=== PATIENT | female | born 1955 | race Caucasian/White ===

== ENCOUNTER 2019-10-21 09:14 | Outpatient (CLI) | payer MEDICARE, OTHER, SELFPAY ==
--- NOTE | 2019-10-21 10:00 | MM_ITS ---
WS: [id number] BILATERAL DIGITAL DIAGNOSTIC MAMMOGRAM MAMMOGRAPHY WITH CAD CLINICAL INFORMATION: breast nodules COMPARISON: 05/11/2018 and 04/19/2018 TECHNIQUE: Bilateral CC, MLO, and ML views. FINDINGS: Scattered fibroglandular densities bilaterally. Palpable marker upper inner right breast. Partially v isualized asymmetric density adjacent to the chest wall at the level of the palpable marker. Ultrasou nd is pending. Evidence of prior surgical lumpectomy with parenchymal fibrosis in the inner right breast. Lucent centered calcifications. Incidental intramammary lymph nodes. Left breast is unremarkable. ULTRASOUND BREAST RIGHT TECHNIQUE: Ultrasound right breast focused area of concern. CLINICAL INFORMATION: breast nodules COMPARISON: None. FINDINGS: Ultrasound right breast 11:00 position. 4 cm from the nipple is a complex lesion with internal echoge nicity measuring 1.1 x 1.8 x 0.7 CM. Additional similar-appearing hypoechoic lesion at the 1:00 posit ion 3 cm from the nipple measuring 2.1 x 3.6 x 1.0 cm. This lesion is wider than tall with internal e chogenicity. These lesions are indeterminate and suspicious. Recommend further evaluation with ultras ound-guided biopsy. MM/[place] [id number] IMPRESSION: BI-RADS: 4C-Suspicious: Moderate FOLLOW UP: US Guided Biopsy Recommended
--- NOTE | 2019-10-21 11:00 | US_ITS ---
WS: [id number] BILATERAL DIGITAL DIAGNOSTIC MAMMOGRAM MAMMOGRAPHY WITH CAD CLINICAL INFORMATION: breast nodules COMPARISON: 05/11/2018 and 04/19/2018 TECHNIQUE: Bilateral CC, MLO, and ML views. FINDINGS: Scattered fibroglandular densities bilaterally. Palpable marker upper inner right breast. Partially v isualized asymmetric density adjacent to the chest wall at the level of the palpable marker. Ultrasou nd is pending. Evidence of prior surgical lumpectomy with parenchymal fibrosis in the inner right breast. Lucent centered calcifications. Incidental intramammary lymph nodes. Left breast is unremarkable. ULTRASOUND BREAST RIGHT TECHNIQUE: Ultrasound right breast focused area of concern. CLINICAL INFORMATION: breast nodules COMPARISON: None. FINDINGS: Ultrasound right breast 11:00 position. 4 cm from the nipple is a complex lesion with internal echoge nicity measuring 1.1 x 1.8 x 0.7 CM. Additional similar-appearing hypoechoic lesion at the 1:00 posit ion 3 cm from the nipple measuring 2.1 x 3.6 x 1.0 cm. This lesion is wider than tall with internal e chogenicity. These lesions are indeterminate and suspicious. Recommend further evaluation with ultras ound-guided biopsy. US/US breast RT limited* [id number] IMPRESSION: BI-RADS: 4C-Suspicious: Moderate FOLLOW UP: US Guided Biopsy Recommended
== END 2019-10-21 09:15 | disposition home or self-care (01) ==
LOC: RADSHAW 09:16
PROVIDERS: Family Provider Nurse Practitioner; PCP Family Medicine; Visit Provider Nurse Practitioner Family
DX: N63.12 Unspecified lump in the right breast, upper inner quadrant (principal)
CPT/HCPCS: 76642; 77066

== ENCOUNTER 2019-11-12 11:35 | Outpatient (CLI) | payer MEDICARE, OTHER, SELFPAY ==
--- NOTE | 2019-11-12 13:00 | US_ITS ---
WS: [id number] ULTRASOUND-GUIDED RIGHT BREAST BIOPSY CLINICAL INFORMATION: breast nodule COMPARISON: None. FINDINGS: The procedure including risks, benefits, and complications were discussed with the patient who agreed to proceed. Using sterile technique patient was prepped and draped in the usual sterile fashion. Aft er 1% lidocaine utilizing real-time ultrasound guidance 5 14-gauge cores were obtained of the right b reast lesion at the 1 o'clock position 4 cm from the nipple. Subsequently a titanium clip was placed in the biopsy cavity Next, the 1:00 lesion 3 cm from the nipple was localized. After 1% lidocaine using real-time ultrasou nd guidance 5 14-gauge cores were obtained. Titanium clip was placed in the biopsy cavity. No immedia te complications. Pathology demonstrates Specimen A, right breast 1:00, 4 cm from nipple, needle core biopsies: Chronic mastitis No malignancy identified Specimen B, right breast, 1:00, 3 cm from nipple: Chronic mastitis No malignancy identified US/[place] [id number] IMPRESSION: 1. Uncomplicated ultrasound-guided right breast biopsy with biopsy of 2 lesion s. 2. The pathology demonstrates chronic mastitis in both lesions with no maligna ncy identified. 3. Recommend 6 month follow-up ultrasound and diagnostic mammography right mikayla ast. BI-RADS: 3-Probably Benign FOLLOW UP: 6 Month Follow-up
== END 2019-11-12 11:36 | disposition home or self-care (01) ==
LOC: RAD 11:39
PROVIDERS: Family Provider Nurse Practitioner; PCP Family Medicine; Visit Provider Nurse Practitioner Family
DX: N63.10 Unspecified lump in the right breast, unspecified quadrant (principal); N60.11 Diffuse cystic mastopathy of right breast; N64.1 Fat necrosis of breast
CPT/HCPCS: 19083; 19084; 88305; J2001

== ENCOUNTER 2020-03-23 06:05 | Day surgery (SDC) | payer MEDICARE, OTHER, SELFPAY ==
[2020-03-20 15:26] VITALS: BMI 41.7
[2020-03-23 06:23] VITALS: BP 130/71; PULSE 63; RESP 18; TEMP 35.8; O2SAT 96
[2020-03-23 06:35] LABS: Glucose Point of Care 116 mg/dL (70-110)
--- NOTE | 2020-03-23 06:40 | ANES.PREANE2 ---
Pre-Anesthetic Assessment Pre-Anesthetic Assessment: Height/Weight: Height 1.57 m Weight 103.419 kg Temp Pulse Resp BP Pulse Ox 96.5 F L 63 18 130/71 96 03/23/20 06:23 03/23/20 06:23 03/23/20 06:23 03/23/20 06:23 03/23/20 06:23 Preop Diagnosis: Chronic mastitis Proposed Procedure: Operation Date: 03/23/20 07:30 Proposed Procedures p Excision right breast lump(Right) - Teddy Herman MD Familial anesthetic complications: None Was Beta Maura taken within 24 hours: N/A Last intake: Intake Last Liquid Date 03/22/20 Last Liquid Time 21:00 Last Solid Date 03/22/20 Last Solid Time 18:30 Social: Social History: No alcohol and No tobacco Exam: Pre-Anes Outpt Exam: alert, oriented x 3, clear to auscultation bilaterally and regular rate & rhythm Airway: Cervical ROM: WNL MP: 4 Dentition: Full Pulmonary: Pulmonary: Asthma (singulair and symbicort daily) CV/HEM: CV/HEM: HTN Metabolic: Metabolic: DM and Morbid obesity Anesthetic Plan: ASA status: 2 Anesthesia: MAC Risk of > 500 ml blood loss (7ml/kg in children): No PFSH Anesthesia PFSH: Medical History Chronic mastitis of right breast Diabetes mellitus Essential hypertension Surgical History History of colonoscopy with polypectomy (~2014) History of partial hysterectomy History of tonsillectomy and adenoidectomy Status post appendectomy Status post right breast lumpectomy Family History Other COPD (chronic obstructive pulmonary disease) Cancer Diabetes Social History Smoking and tobacco status: never smoked Alcohol intake: never Data Anesthesia Other Labs: Laboratory Results - last 48 hr 03/23/20 06:33 POC Glucose 116 Cardiac Studies: No Data to Display
[2020-03-23] MEDS: sodium chloride 0.9% 1,000 ML 30 ML IV (06:42)
--- NOTE | 2020-03-23 06:59 | W.PM.OPSUD ---
Surgery/Procedure H&P Update DATE OF PROCEDURE: March 23, 2020 DATE H&P PERFORMED: 03/16/20 H&P UPDATE INFORMATION: I have reviewed H&P completed within last 30 days, I have examined patient prior to procedure and No changes to prior documentation PREOP DIAGNOSIS: Chronic mastitis PLANNED PROCEDURE: Operation Date: 03/23/20 07:30 Proposed Procedures p Excision right breast lump(Right) - Teddy Herman MD
[2020-03-23] MEDS: clindamycin 600 MG/50 ML PREMIX 100 MG IV (07:49)
[2020-03-23] MEDS: lidocaine 1% INJ 20 mL SUBCUT (08:07)
[2020-03-23 08:53] VITALS: BP 93/60; PULSE 61; RESP 16; TEMP 36.5; O2SAT 97
--- NOTE | 2020-03-23 08:56 | PM.OP ---
Operative Report Date of procedure: March 23, 2020 Pre-op Diagnosis: Status post lumpectomy right breast 2018, chronic mastitis Post-op Diagnosis: Status post right breast lumpectomy 10 o'clock position 2018 Chronic mastitis Cicatrized cavity at the lumpectomy site containing purulent fluid Procedure Done: Right breast lumpectomy 10 o'clock position Specimens removed/disposition: Wound cultures, aerobic and anaerobic Pathology Surgeon: Teddy Herman Anesthesia: MAC Condition: stable Disposition: PACU Procedure: The patient was taken to the operating room and placed under MAC after IV antibiotic had been administered. The surgical site was infiltrated with 1% lidocaine mixed with 0.5% Marcaine. Using a 15 blade an elliptical incision was made around the existing scar at 10 o'clock position on the right breast. A lacrimal probe was introduced through the draining punctum on the incision. Using electrocautery the subcutaneous tissue was divided and the dissection was carried towards the chest wall medially around the cicatrized tunnel. At one point there was drainage of purulent fluid, aerobic and anaerobic cultures were obtained. The dissection around the cicatrized tunnel containing the lacrimal probe extended to the original lumpectomy cavity site. The cicatrized lumpectomy cavity was excised until there was no scar tissue noted within the lumpectomy cavity. Wound was irrigated copiously with saline and packed with quarter inch ribbon gauze and covered with sterile dressings. The patient was extubated and transferred to recovery room in stable condition.
[2020-03-23 09:14] VITALS: BP 113/74; PULSE 60; RESP 18; O2SAT 99
--- NOTE | 2020-03-23 09:14 | SUR.PHASEII ---
pain Pt stating 5/10 on pain scale but is refusing medication at this time stating she wouldnt be able to wake up enough to get dressed to go home.
--- NOTE | 2020-03-23 09:24 | ANE.PACU2 ---
Inpatient post-anesthesia follow up: Airway intact: Yes Vital signs: Temperature 97.7 F Pulse Rate 60 Respiratory Rate 18 Blood Pressure 113/74 Pulse Oximetry 99 Oxygen Delivery Me thod Room Air Oxygen Flow Rate Fraction of Inspir ed Oxygen Hydration adequate: Yes Nausea and vomiting: No Pain level: 5 Mental status: Baseline
== END 2020-03-23 09:28 | disposition home or self-care (01) ==
PROVIDERS: PCP Family Medicine; Visit Provider Surgery
PROC: (CPT 19301; principal; 2020-03-23 07:30)
DX: N61.0 Mastitis without abscess (principal); N60.11 Diffuse cystic mastopathy of right breast; J45.909 Unspecified asthma, uncomplicated; I10 Essential (primary) hypertension; E11.9 Type 2 diabetes mellitus without complications; E66.01 Morbid (severe) obesity due to excess calories
CPT/HCPCS: 19301; 12345; 36416; 82962; 87070; 87075; 88305; J2250; J2405; J2704; J2765; J3010; J3490; J7030

== ENCOUNTER 2020-04-01 09:15 | Outpatient (CLI) | payer MEDICARE, OTHER, SELFPAY ==
[2020-04-01 12:05] LABS: Alanine Aminotransferase 24 U/L (0-33); Alkaline Phosphatase 87 IU/L (35-105); Aspartate Amino Transferase 21 U/L (0-32); Blood Urea Nitrogen 19 mg/dL (8-23); Calcium 9.7 mg/dL (8.5-10.5); Carbon Dioxide 28 mmol/L (22-29); Chloride 103 mmol/L (98-107); Globulin 3.3 g/dL (1.3-4.6); Glomerular Filtration Rate 83.7 mL/min (90-130); Glucose 115 mg/dL (65-115); Osmolality Calculated 287 mOsm/kg (285-295); Sodium 140 mmol/L (136-145); Total Bilirubin 0.3 mg/dL (0.15-1.2); Total Protein 7.3 g/dL (6.6-8.7)
[2020-04-01 12:06] LABS: Anion Gap 13.5 (5-19); Potassium 4.5 mmol/L (3.5-5.1)
[2020-04-01 12:12] LABS: Prealbumin 19.9 mg/dL (20-40)
== END 2020-04-01 09:16 | disposition home or self-care (01) ==
LOC: WOUND 09:16
PROVIDERS: PCP Family Medicine; Visit Provider Emergency Medicine
DX: T81.89XA Other complications of procedures, not elsewhere classified, initial encounter (principal)
CPT/HCPCS: 11042; 36415; 80053; 84134; 87070; 87077; 87176; 87205; G0463

== ENCOUNTER 2020-04-08 10:08 | Outpatient (CLI) | payer MEDICARE, OTHER, SELFPAY | END 2020-04-08 10:09 | disposition home or self-care (01) | LOC: WOUND 10:09 | PROVIDERS: PCP Family Medicine; Visit Provider Emergency Medicine | DX: T81.89XA Other complications of procedures, not elsewhere classified, initial encounter (principal) | CPT/HCPCS: 11042 ==

== ENCOUNTER 2020-04-13 13:21 | Outpatient (CLI) | payer MEDICARE, OTHER, SELFPAY | END 2020-04-13 13:22 | disposition home or self-care (01) | LOC: WOUND 13:23 | PROVIDERS: PCP Family Medicine; Visit Provider Nurse Practitioner Family | DX: E11.622 Type 2 diabetes mellitus with other skin ulcer (principal); L98.492 Non-pressure chronic ulcer of skin of other sites with fat layer exposed | CPT/HCPCS: 11042; 97605 ==

== ENCOUNTER 2020-04-17 14:50 | Outpatient (CLI) | payer MEDICARE, OTHER, SELFPAY | END 2020-04-17 14:51 | disposition home or self-care (01) | LOC: WOUND 14:51 | PROVIDERS: PCP Family Medicine; Visit Provider Surgery | DX: T81.89XA Other complications of procedures, not elsewhere classified, initial encounter (principal) | CPT/HCPCS: 11042 ==

== ENCOUNTER 2020-04-20 08:20 | Outpatient (CLI) | payer MEDICARE, OTHER, SELFPAY ==
--- NOTE | 2020-04-20 08:32 | US_ITS ---
WS: [id number] ULTRASOUND RIGHT BREAST HISTORY: PAIN, REDNESS, NONHEALING ULCER COMPARISON: 11/12/2019 TECHNIQUE: 2-D and Doppler. Superficial soft tissue ulceration at 1:00 RIGHT breast 5 cm from the nipple. Soft tissue ulceration measures 1.1 x 1.3 x 1.4 cm. Very little increased vascularity. US/US breast RT limited* [id number] IMPRESSION: BI-RADS: 3-Probably Benign FOLLOW-UP: See Report Soft tissue ulceration RIGHT breast at 1:00 at the surgical site. Nonhealing po stoperative ulcer suspected. Less likely abscess.
== END 2020-04-20 08:21 | disposition home or self-care (01) ==
LOC: RAD 08:26
PROVIDERS: PCP Family Medicine; Visit Provider Surgery
DX: L53.9 Erythematous condition, unspecified (principal); N64.4 Mastodynia; L98.499 Non-pressure chronic ulcer of skin of other sites with unspecified severity; T81.89XA Other complications of procedures, not elsewhere classified, initial encounter; X58.XXXA Exposure to other specified factors, initial encounter
CPT/HCPCS: 76642

== ENCOUNTER 2020-04-24 14:54 | Outpatient (CLI) | payer MEDICARE, OTHER, SELFPAY | END 2020-04-24 14:55 | disposition home or self-care (01) | LOC: WOUND 14:55 | PROVIDERS: PCP Family Medicine; Visit Provider Surgery | DX: T81.89XA Other complications of procedures, not elsewhere classified, initial encounter (principal) | CPT/HCPCS: 11042 ==

== ENCOUNTER 2020-05-01 14:59 | Outpatient (CLI) | payer MEDICARE, OTHER, SELFPAY | END 2020-05-01 15:00 | disposition home or self-care (01) | LOC: WOUND 14:59 | PROVIDERS: PCP Family Medicine; Visit Provider Surgery | DX: E11.622 Type 2 diabetes mellitus with other skin ulcer (principal); L98.492 Non-pressure chronic ulcer of skin of other sites with fat layer exposed | CPT/HCPCS: 11042; A6446 ==

== ENCOUNTER 2020-05-29 14:46 | Outpatient (CLI) | payer MEDICARE, OTHER, SELFPAY | END 2020-05-29 14:47 | disposition home or self-care (01) | LOC: WOUND 14:46 | PROVIDERS: PCP Family Medicine; Visit Provider Nurse Practitioner Family | DX: E11.622 Type 2 diabetes mellitus with other skin ulcer (principal); L98.492 Non-pressure chronic ulcer of skin of other sites with fat layer exposed | CPT/HCPCS: 11042; 87070; 87077; 87186 ==

== ENCOUNTER 2020-06-12 14:16 | Outpatient (CLI) | payer MEDICARE, OTHER, SELFPAY | END 2020-06-12 14:17 | disposition home or self-care (01) | LOC: WOUND 14:17 | PROVIDERS: PCP Family Medicine; Visit Provider Surgery | DX: E11.622 Type 2 diabetes mellitus with other skin ulcer (principal); L98.492 Non-pressure chronic ulcer of skin of other sites with fat layer exposed; I96 Gangrene, not elsewhere classified | CPT/HCPCS: 11042 ==

== ENCOUNTER 2020-06-26 14:08 | Outpatient (CLI) | payer MEDICARE, OTHER, SELFPAY | END 2020-06-26 14:09 | disposition home or self-care (01) | LOC: WOUND 14:09 | PROVIDERS: PCP Family Medicine; Visit Provider Surgery | DX: E11.622 Type 2 diabetes mellitus with other skin ulcer (principal); L98.492 Non-pressure chronic ulcer of skin of other sites with fat layer exposed | CPT/HCPCS: 11042 ==

== ENCOUNTER 2020-07-03 14:02 | Outpatient (CLI) | payer MEDICARE, OTHER, SELFPAY | END 2020-07-03 14:03 | disposition home or self-care (01) | LOC: WOUND 14:02 | PROVIDERS: PCP Family Medicine; Visit Provider Surgery | DX: E11.622 Type 2 diabetes mellitus with other skin ulcer (principal); L98.492 Non-pressure chronic ulcer of skin of other sites with fat layer exposed | CPT/HCPCS: 11042 ==

== ENCOUNTER 2020-07-10 13:55 | Outpatient (CLI) | payer MEDICARE, OTHER, SELFPAY | END 2020-07-10 13:56 | disposition home or self-care (01) | LOC: WOUND 13:56 | PROVIDERS: PCP Family Medicine; Visit Provider Surgery | DX: E11.622 Type 2 diabetes mellitus with other skin ulcer (principal); L98.492 Non-pressure chronic ulcer of skin of other sites with fat layer exposed | CPT/HCPCS: 11042 ==

== ENCOUNTER 2020-07-23 14:15 | Outpatient (CLI) | payer MEDICARE, OTHER, SELFPAY | END 2020-07-23 14:16 | disposition home or self-care (01) | LOC: WOUND 14:17 | PROVIDERS: PCP Family Medicine; Visit Provider Nurse Practitioner Family | DX: E11.622 Type 2 diabetes mellitus with other skin ulcer (principal); L98.492 Non-pressure chronic ulcer of skin of other sites with fat layer exposed | CPT/HCPCS: 11042 ==

== ENCOUNTER 2020-07-31 14:44 | Outpatient (CLI) | payer MEDICARE, OTHER, SELFPAY | END 2020-07-31 14:45 | disposition home or self-care (01) | LOC: WOUND 14:46 | PROVIDERS: PCP Family Medicine; Visit Provider Surgery | DX: E11.622 Type 2 diabetes mellitus with other skin ulcer (principal); T81.31XS Disruption of external operation (surgical) wound, not elsewhere classified, sequela; Y83.8 Other surgical procedures as the cause of abnormal reaction of the patient, or of later complication, without mention of misadventure at the time of the procedure; L98.492 Non-pressure chronic ulcer of skin of other sites with fat layer exposed | CPT/HCPCS: 11042 ==

== ENCOUNTER 2020-08-07 14:20 | Outpatient (CLI) | payer MEDICARE, OTHER, SELFPAY | END 2020-08-07 14:21 | disposition home or self-care (01) | LOC: WOUND 14:24 | PROVIDERS: PCP Family Medicine; Visit Provider Surgery | DX: E11.622 Type 2 diabetes mellitus with other skin ulcer (principal); L98.492 Non-pressure chronic ulcer of skin of other sites with fat layer exposed; T81.31XS Disruption of external operation (surgical) wound, not elsewhere classified, sequela; Y83.8 Other surgical procedures as the cause of abnormal reaction of the patient, or of later complication, without mention of misadventure at the time of the procedure | CPT/HCPCS: 11042 ==

== ENCOUNTER 2020-08-14 10:24 | Outpatient (CLI) | payer MEDICARE, OTHER, SELFPAY | END 2020-08-14 10:25 | disposition home or self-care (01) | LOC: WOUND 10:25 | PROVIDERS: PCP Family Medicine; Visit Provider Surgery | DX: E11.622 Type 2 diabetes mellitus with other skin ulcer (principal); L98.492 Non-pressure chronic ulcer of skin of other sites with fat layer exposed; T81.31XS Disruption of external operation (surgical) wound, not elsewhere classified, sequela; Y83.8 Other surgical procedures as the cause of abnormal reaction of the patient, or of later complication, without mention of misadventure at the time of the procedure | CPT/HCPCS: 11042 ==

== ENCOUNTER 2020-08-21 10:28 | Outpatient (CLI) | payer MEDICARE, OTHER, SELFPAY | END 2020-08-21 10:29 | disposition home or self-care (01) | LOC: WOUND 10:31 | PROVIDERS: PCP Family Medicine; Visit Provider Surgery | DX: T81.89XA Other complications of procedures, not elsewhere classified, initial encounter (principal); Y83.8 Other surgical procedures as the cause of abnormal reaction of the patient, or of later complication, without mention of misadventure at the time of the procedure | CPT/HCPCS: 11042 ==

== ENCOUNTER 2020-08-28 14:37 | Outpatient (CLI) | payer MEDICARE, OTHER, SELFPAY | END 2020-08-28 14:38 | disposition home or self-care (01) | LOC: WOUND 14:38 | PROVIDERS: PCP Family Medicine; Visit Provider Surgery | DX: E11.622 Type 2 diabetes mellitus with other skin ulcer (principal); L98.492 Non-pressure chronic ulcer of skin of other sites with fat layer exposed | CPT/HCPCS: 11042 ==

== ENCOUNTER 2020-09-04 14:28 | Outpatient (CLI) | payer MEDICARE, OTHER, SELFPAY | END 2020-09-04 14:29 | disposition home or self-care (01) | LOC: WOUND 14:29 | PROVIDERS: PCP Family Medicine; Visit Provider Surgery | DX: T81.89XA Other complications of procedures, not elsewhere classified, initial encounter (principal); Y83.8 Other surgical procedures as the cause of abnormal reaction of the patient, or of later complication, without mention of misadventure at the time of the procedure | CPT/HCPCS: 11042 ==

== ENCOUNTER 2020-09-11 13:19 | Outpatient (CLI) | payer MEDICARE, OTHER, SELFPAY | END 2020-09-11 13:20 | disposition home or self-care (01) | LOC: WOUND 13:21 | PROVIDERS: PCP Family Medicine; Visit Provider Surgery | DX: T81.89XA Other complications of procedures, not elsewhere classified, initial encounter (principal); Y83.8 Other surgical procedures as the cause of abnormal reaction of the patient, or of later complication, without mention of misadventure at the time of the procedure | CPT/HCPCS: 11042 ==

== ENCOUNTER 2020-09-18 13:23 | Outpatient (CLI) | payer MEDICARE, OTHER, SELFPAY | END 2020-09-18 13:24 | disposition home or self-care (01) | LOC: WOUND 13:24 | PROVIDERS: PCP Family Medicine; Visit Provider Surgery | DX: T81.89XA Other complications of procedures, not elsewhere classified, initial encounter (principal) | CPT/HCPCS: 11042 ==

== ENCOUNTER 2020-09-25 13:59 | Outpatient (CLI) | payer MEDICARE, OTHER, SELFPAY | END 2020-09-25 14:00 | disposition home or self-care (01) | LOC: WOUND 14:04 | PROVIDERS: PCP Family Medicine; Visit Provider Surgery | DX: E11.622 Type 2 diabetes mellitus with other skin ulcer (principal); L98.492 Non-pressure chronic ulcer of skin of other sites with fat layer exposed | CPT/HCPCS: 11042 ==

== ENCOUNTER 2020-09-28 14:16 | Outpatient (CLI) | payer MEDICARE, OTHER, SELFPAY ==
--- NOTE | 2020-09-28 14:25 | MM_ITS ---
WS: [id number] BILATERAL DIGITAL DIAGNOSTIC MAMMOGRAM MAMMOGRAPHY WITH CAD CLINICAL INFORMATION: PAIN,REDNESS,NONHEALING ULCER,HX IDIOPATHIC GRANULOMATIS MAS HISTORY: Pain redness nonhealing ulcer. COMPARISON: April 20, 2020 and October 21, 2019 TECHNIQUE: Bilateral CC, MLO, and ML views. FINDINGS: Scattered fibroglandular densities bilaterally. Punctate and lucent centered calcifications. Surgical corridor right breast inner quadrant posterior depth. Ultrasound is pending. Left breast is unchanged and unremarkable. ULTRASOUND BREAST RIGHT TECHNIQUE: Ultrasound right breast focused area of concern. CLINICAL INFORMATION: PAIN,REDNESS,NONHEALING ULCER,HX IDIOPATHIC GRANULOMATIS MAS FINDINGS: Ultrasound for nonhealing ulceration at the surgical site. Superficial soft tissue ulceration with wo und opening at the 1:00 position 5 cm from the nipple. Postoperative changes about the resection cavi ty. No evidence of underlying abscess or fluid collection. Surgical tract directed inward towards the nipple. Surgical tract measures approximately 4.1 cm. MM/[place] [id number] IMPRESSION: BI-RADS: 3-Probably Benign FOLLOW UP: 6 Month Follow-up RECOMMEND FOLLOW-UP RIGHT DIAGNOSTIC MAMMOGRAPHY AND ULTRASOUND IN 6 MONTHS
== END 2020-09-28 14:17 | disposition home or self-care (01) ==
LOC: RADSHAW 14:19
PROVIDERS: PCP Family Medicine; Visit Provider Surgery
DX: N64.4 Mastodynia (principal); L53.9 Erythematous condition, unspecified; L98.499 Non-pressure chronic ulcer of skin of other sites with unspecified severity
CPT/HCPCS: 76642; 77066

== ENCOUNTER 2020-10-02 14:37 | Outpatient (CLI) | payer MEDICARE, OTHER, SELFPAY | END 2020-10-02 14:38 | disposition home or self-care (01) | LOC: WOUND 14:39 | PROVIDERS: PCP Family Medicine; Visit Provider Surgery | DX: E11.622 Type 2 diabetes mellitus with other skin ulcer (principal); L98.492 Non-pressure chronic ulcer of skin of other sites with fat layer exposed | CPT/HCPCS: 11042 ==

== ENCOUNTER 2020-10-09 13:51 | Outpatient (CLI) | payer MEDICARE, OTHER, SELFPAY | END 2020-10-09 13:52 | disposition home or self-care (01) | LOC: WOUND 13:51 | PROVIDERS: PCP Family Medicine; Visit Provider Nurse Practitioner Family | DX: T81.89XA Other complications of procedures, not elsewhere classified, initial encounter (principal); Z20.822 Contact with and (suspected) exposure to COVID-19; Z11.52 Encounter for screening for COVID-19; N60.11 Diffuse cystic mastopathy of right breast | CPT/HCPCS: 11042; 87635 ==

== ENCOUNTER 2020-10-12 07:49 | Day surgery (SDC) | payer MEDICARE, OTHER, SELFPAY ==
[2020-10-12 08:27] VITALS: BP 158/85; PULSE 64; RESP 16; TEMP 36.5; O2SAT 96
[2020-10-12] MEDS: acetaminophen 1,000 MG/100 ML PIGGYBACK 400 MG IV (08:37)
[2020-10-12] MEDS: sodium chloride 0.9% 1,000 ML 30 ML IV (08:37)
[2020-10-12 08:43] LABS: Glucose Point of Care 106 mg/dL (70-110)
--- NOTE | 2020-10-12 08:52 | ANES.PREANE2 ---
Pre-Anesthetic Assessment Pre-Anesthetic Assessment: Height/Weight: Height 1.57 m Weight 103.419 kg Temp Pulse Resp BP Pulse Ox 97.7 F 64 16 158/85 96 10/12/20 08:27 10/12/20 08:27 10/12/20 08:27 10/12/20 08:27 10/12/20 08:27 Preop Diagnosis: Chronic right breast wound Proposed Procedure: Operation Date: 10/12/20 12:40 Proposed Procedures p Debridement of right breast wound 25429 [id number] 19974 E11.622 T81.31XS L98.492(Right) - Roderick Whaley MD Familial anesthetic complications: None Last intake: Intake Last Liquid Date 10/12/20 Last Liquid Time 06:40 Last Solid Date 10/11/20 Last Solid Time 18:00 Social: Social History: No alcohol and No tobacco Exam: Pre-Anes Outpt Exam: alert, oriented x 3, clear to auscultation bilaterally and regular rate & rhythm Airway: Cervical ROM: WNL MP: 3 Dentition: Full Pulmonary: Pulmonary: Asthma CV/HEM: CV/HEM: HTN GI: GI: GERD Anesthetic Plan: ASA status: 3 Anesthesia: General Risk of > 500 ml blood loss (7ml/kg in children): No Meds/Allergies Current Medications: Current Medications Generic Name Dose Route Start Last Admin Trade Name Freq PRN Reason Stop Dose Admin Sodium Chloride 1,000 mls @ 30 ml s/hr 10/12/20 08:15 10/12/20 08:37 Sodium Chloride 0.9% IV 10/13/20 08:14 30 mls/hr .Q24H YUSEF Administration PFSH Anesthesia PFSH: Medical History Chronic mastitis of right breast Diabetes mellitus Essential hypertension Surgical History (Updated 03/23/20 @ 08:48 by Teddy Herman MD) History of colonoscopy with polypectomy (~2014) History of partial hysterectomy History of tonsillectomy and adenoidectomy S/P lumpectomy, right breast (03/23/20) abscess Status post appendectomy Status post right breast lumpectomy (~05/2018) Family History Other COPD (chronic obstructive pulmonary disease) Cancer Diabetes Social History Smoking and tobacco status: never smoked Alcohol intake: never Data Anesthesia Other Labs: Laboratory Results - last 48 hr 10/12/20 08:36 POC Glucose 106 Cardiac Studies: No Data to Display
--- NOTE | 2020-10-12 10:27 | W.PM.OPSUD ---
Surgery/Procedure H&P Update DATE OF PROCEDURE: October 12, 2020 DATE H&P PERFORMED: 10/02/20 H&P UPDATE INFORMATION: I have reviewed H&P completed within last 30 days, I have examined patient prior to procedure and No changes to prior documentation PREOP DIAGNOSIS: Chronic right breast wound PRIMARY INDICATION FOR PROCEDURE: The same PLANNED PROCEDURE: Operation Date: 10/12/20 12:40 Proposed Procedures p Debridement of right breast wound 75735 [id number] E11.622 T81.31XS L98.492(Right) - Roderick Whaley MD
[2020-10-12] MEDS: clindamycin 600 MG/50 ML PREMIX 100 MG IV (10:57)
--- NOTE | 2020-10-12 11:34 | PM.OP ---
Operative Report Date of procedure: October 12, 2020 Pre-op Diagnosis: Chronic right breast wound Post-op diagnosis: same Post-op Findings: Right breast cavitation Procedure Done: Debridement of right breast wound and application of vessel loop Implants: Vessel loop application Specimens removed/disposition: Specimen in the form of tissues for cultures from the right wound cavity Tissues from the wound cavity for permanent pathology Tissues from the chronic breast wound for permanent pathology Surgeon: Roderick Whaley Chainstitch Elastic Attacher: information technology instructor Alisha Circulating nurse Radha Anesthesia: General (LMA retail sales vitamin consultant Jluis and Concepción) Estimated blood loss (mL): 10 Condition: stable Disposition: same day Brief History: Chronic breast wound full H&P and informed consent per chart Procedure: After identifying the patient holding area, the right breast was marked before the procedure by myself in the presence of female farm machinery erector nursing staff Clarissa, patient was then taken to the operative suite, was placed in supine position, IV antibiotics were given per protocol, LMA was then placed by the anesthesia provider, prep and drape of the right pectoral area including chronic breast wound was done under the usual sterile technique. Time-out was done verifying the patient's name/date of /planned procedure and destination after the procedure, all were in agreement. Predebridement measurement 0.5 x 0.5 x 0.5 Started by excising unhealthy tissues of the right breast wound send it for permanent pathology. Post debridement measurements 1 x [address] to the fatty breast tissue Further sharp curette edge of the wound cavity was done and tissues were sent for microbiology as well as for permanent pathology. I decided at this point to perform a counter incision towards the lateral aspect of the breast and I started by copious and thorough irrigation using Vashe solution, followed by hemostasis and a vessel loop was passed from the index wound to the contralateral incision and was tied down to encircle the whole wound using 3-0 silk ties. For Future flossing of the wound. The wound debridement was done all the way sharply to the subcutaneous and deeper including the breast tissues. Fluffs were applied followed by ABDs and sports bra Patient tolerated the procedure well, count of instruments, needles and sponges were completed at the end of the procedure. Patient was then taken to the recovery area in stable condition. I was present for the whole entire procedure
[2020-10-12 11:46] VITALS: BP 100/65; PULSE 75; RESP 19; TEMP 36.2; O2SAT 100
[2020-10-12 11:50] VITALS: BP 111/80; PULSE 75; RESP 18; O2SAT 100
--- NOTE | 2020-10-12 11:50 | SUR.PHASEI ---
PT AWAKE ALERT ON RA , PT DENIES PAIN AND NAUSEA, WARM BLANKETS TO PT , VSS. RT BREAST DRESSING D/I WITH SUPPORT BRA IN PLACE.
--- NOTE | 2020-10-12 11:52 | SUR.PHASEI ---
DR GARCIA AT BEDSIDE TALKING WITH PT , PT AWAKE ALERT AND TALKATIVE,
[2020-10-12 11:55] VITALS: BP 111/80; PULSE 70; RESP 16; TEMP 36.2; O2SAT 98
[2020-10-12 12:00] VITALS: BP 114/47; PULSE 70; RESP 16; TEMP 36.6; O2SAT 98
[2020-10-12 12:15] VITALS: BP 112/67; PULSE 66; RESP 16; TEMP 36.6; O2SAT 98
--- NOTE | 2020-10-12 18:59 | ANE.PACU2 ---
Inpatient post-anesthesia follow up: Airway intact: Yes Vital signs: Temperature 97.9 F Pulse Rate 66 Respiratory Rate 16 Blood Pressure 112/67 Pulse Oximetry 98 Oxygen Delivery Me thod Room Air Oxygen Flow Rate Fraction of Inspir ed Oxygen Hydration adequate: Yes Nausea and vomiting: No Pain level: 3 Mental status: Baseline
== END 2020-10-12 12:40 | disposition home or self-care (01) ==
PROVIDERS: PCP Family Medicine; Visit Provider Surgery
PROC: (CPT 11042; principal; 2020-10-12 12:30)
DX: S21.001A Unspecified open wound of right breast, initial encounter (principal); X58.XXXA Exposure to other specified factors, initial encounter; I10 Essential (primary) hypertension; J45.909 Unspecified asthma, uncomplicated; K21.9 Gastro-esophageal reflux disease without esophagitis; E11.9 Type 2 diabetes mellitus without complications
CPT/HCPCS: 11042; 36416; 82962; 87070; 87075; 87077; 87186; 87205; 88305; 96365; J2370; J3010; J3490; J7030

== ENCOUNTER 2020-10-16 15:02 | Outpatient (CLI) | payer MEDICARE, OTHER, SELFPAY | END 2020-10-16 15:03 | disposition home or self-care (01) | LOC: WOUND 15:03 | PROVIDERS: PCP Family Medicine; Visit Provider Surgery | DX: E11.622 Type 2 diabetes mellitus with other skin ulcer (principal); L98.492 Non-pressure chronic ulcer of skin of other sites with fat layer exposed | CPT/HCPCS: 11042 ==

== ENCOUNTER 2020-10-23 14:06 | Outpatient (CLI) | payer MEDICARE, OTHER, SELFPAY | END 2020-10-23 14:07 | disposition home or self-care (01) | LOC: WOUND 14:07 | PROVIDERS: PCP Family Medicine; Visit Provider Surgery | DX: T81.89XA Other complications of procedures, not elsewhere classified, initial encounter (principal) | CPT/HCPCS: 11042 ==

== ENCOUNTER 2020-10-30 14:19 | Outpatient (CLI) | payer MEDICARE, OTHER, SELFPAY | END 2020-10-30 14:20 | disposition home or self-care (01) | LOC: WOUND 14:20 | PROVIDERS: PCP Family Medicine; Visit Provider Surgery | DX: T81.89XA Other complications of procedures, not elsewhere classified, initial encounter (principal) | CPT/HCPCS: 11042 ==

== ENCOUNTER 2020-11-06 14:18 | Outpatient (CLI) | payer MEDICARE, OTHER, SELFPAY | END 2020-11-06 14:19 | disposition home or self-care (01) | LOC: WOUND 14:19 | PROVIDERS: PCP Family Medicine; Visit Provider Surgery | DX: T81.89XA Other complications of procedures, not elsewhere classified, initial encounter (principal) | CPT/HCPCS: 11042 ==

== ENCOUNTER 2020-11-13 13:54 | Outpatient (CLI) | payer MEDICARE, OTHER, SELFPAY | END 2020-11-13 13:55 | disposition home or self-care (01) | LOC: WOUND 13:55 | PROVIDERS: PCP Family Medicine; Visit Provider Surgery | DX: T81.89XA Other complications of procedures, not elsewhere classified, initial encounter (principal) | CPT/HCPCS: 11042 ==

== ENCOUNTER 2020-11-17 10:46 | Outpatient (CLI) | payer MEDICARE, OTHER, SELFPAY ==
--- NOTE | 2020-11-17 10:56 | US_ITS ---
WS: [id number] ULTRASOUND RIGHT BREAST HISTORY: TYPE 2 DM W/OTHER SKIN ULCER COMPARISON: 09/28/2020 TECHNIQUE: 2-D and Doppler. There has been a moderate improvement in the RIGHT breast ulceration and deep parenchymal involvement since 09/28/2020. There is a defect within the superficial soft tissue with a large amount of shadowin g. There is a collapsed fluid collection now measuring 2.2 x 0.6 cm. No increased vascularity or enla rging mass. US/US breast RT complete [id number] IMPRESSION: BI-RADS: 3-Probably Benign FOLLOW-UP: See Report Moderate improvement in the RIGHT breast ulceration at 1:00 since 09/28/2020. Rec ommend close imaging and clinical follow-up to be ensure resolution. At this ti me there is no mass.
== END 2020-11-17 10:47 | disposition home or self-care (01) ==
LOC: RAD 10:47
PROVIDERS: PCP Family Medicine; Visit Provider Surgery
DX: E11.622 Type 2 diabetes mellitus with other skin ulcer (principal)
CPT/HCPCS: 76641

== ENCOUNTER 2020-11-20 13:55 | Outpatient (CLI) | payer MEDICARE, OTHER, SELFPAY | END 2020-11-20 13:56 | disposition home or self-care (01) | LOC: WOUND 13:56 | PROVIDERS: PCP Family Medicine; Visit Provider Surgery | DX: T81.89XA Other complications of procedures, not elsewhere classified, initial encounter (principal) | CPT/HCPCS: 99212 ==

== ENCOUNTER 2020-12-10 11:39 | Outpatient (CLI) | payer MEDICARE, OTHER, SELFPAY ==
--- NOTE | 2020-12-10 11:54 | US_ITS ---
WS: [id number] ULTRASOUND BREAST RIGHT TECHNIQUE: Ultrasound right breast focused area of concern. CLINICAL INFORMATION: TYPE 2 DM WITH SKIN ULCER COMPARISON: Ultrasound November 17, 2020 and multiple prior ultrasounds dating back to September 2019 FINDINGS: Ultrasound right breast at the 1:00 position 5 cm from the nipple. Hypoechoic complex lobulated lesio n seen today measuring 1.5 x 2.6 x 2.0. This is new compared to the previous examination November 17. Associated sinus tract appears to extend towards the skin in the area of ulceration. Some associated areas of vascularity. This lesion does not appear cystic and does not compress. Internal contents are nonmobile with decubitus positioning. Consider further evaluation with ultrasound guided biopsy or s urgical evaluation. US/US breast RT limited* [id number] IMPRESSION: New indeterminant complex hypoechoic lesion measuring 1.5 x 2.6 x 2.0 associate d with the area of chronic ulceration. Recommend further evaluation with ultras ound-guided biopsy versus surgical evaluation.
== END 2020-12-10 11:40 | disposition home or self-care (01) ==
LOC: RAD 11:40
PROVIDERS: PCP Family Medicine; Visit Provider Surgery
DX: E11.622 Type 2 diabetes mellitus with other skin ulcer (principal)
CPT/HCPCS: 76642

== ENCOUNTER 2020-12-18 13:21 | Outpatient (CLI) | payer MEDICARE, OTHER, SELFPAY | END 2020-12-18 13:22 | disposition home or self-care (01) | LOC: WOUND 13:22 | PROVIDERS: PCP Family Medicine; Visit Provider Surgery | DX: Z09 Encounter for follow-up examination after completed treatment for conditions other than malignant neoplasm (principal) | CPT/HCPCS: 99212 ==

== ENCOUNTER 2021-01-18 09:20 | Outpatient (CLI) | payer MEDICARE, OTHER, SELFPAY ==
--- NOTE | 2021-01-18 09:28 | US_ITS ---
WS: [id number] ULTRASOUND RIGHT BREAST HISTORY: TYPE 2 DM W/OTHER SKIN ULCER COMPARISON: 12/10/2020 and 11/17/2020 TECHNIQUE: 2-D and Doppler. Tubular complex mass with increased vascularity noted extending posterior from the superficial wound near the areolar. This complex hypoechoic collection measures 3.3 x 1.0 cm with no significant change since the most recent. No significant improvement in size since the prior study. The increased vascu larity is concerning for an inflammatory process or malignancy. This abnormality has worsened since and minimally increased since 12/10/2020. US/[place] complete [id number] IMPRESSION: BI-RADS: 4-Suspicious Finding-Biopsy Should Be Considered FOLLOW-UP: See Report Complex collection with increased vascularity has not improved since the prior study. The increased vascularity is concerning for neoplasm or acute inflammato ry process such as granulomatous mastitis. Surgical evacuation may be necessary .
== END 2021-01-18 09:21 | disposition home or self-care (01) ==
PROVIDERS: PCP Family Medicine; Visit Provider Surgery
DX: E11.622 Type 2 diabetes mellitus with other skin ulcer (principal)
CPT/HCPCS: 76641

== ENCOUNTER 2021-03-22 09:42 | Outpatient (CLI) | payer MEDICARE, OTHER, SELFPAY ==
--- NOTE | 2021-03-22 10:15 | US_ITS ---
WS: [id number] ULTRASOUND RIGHT BREAST HISTORY: Z98.890 - Other specified postprocedural states COMPARISON: 01/18/2021, 12/10/2020, 11/17/2020 and 09/28/2020 TECHNIQUE: 2-D and Doppler. Continued linear tract with hypoechoic soft tissue in the central portion of the tract. There is incr eased vascularity within the soft tissue. Tract measures 3.2 x 0.7 x 1.5 cm and has slightly increase d in size. Increased vascularity is concerning for a neoplastic process. Granulomatous mastitis shoul d be considered. US/US breast RT complete [id number] IMPRESSION: BI-RADS: 4-Suspicious Finding-Biopsy Should Be Considered FOLLOW-UP: Biopsy Recommended No significant improvement in the soft tissue filling the linear tract which ex tends to the surface of the breast. Without biopsy cannot exclude neoplasm. Thi s may be granulomatous mastitis. No improvement. Recommend surgical debridement .
== END 2021-03-22 09:43 | disposition home or self-care (01) ==
LOC: RAD 09:48
PROVIDERS: PCP Family Medicine; Visit Provider Surgery
DX: Z98.890 Other specified postprocedural states (principal); N60.11 Diffuse cystic mastopathy of right breast
CPT/HCPCS: 76641

== ENCOUNTER 2021-05-20 13:07 | Outpatient (CLI) | payer MEDICARE, OTHER, SELFPAY ==
--- NOTE | 2021-05-20 13:15 | MM_ITS ---
WS: [id number] DIAGNOSTIC RIGHT DIGITAL MAMMOGRAM WITH CAD RIGHT breast ultrasound, limited HISTORY: N60.11 - Diffuse cystic mastopathy of right breast COMPARISON: 09/28/2020, 10/21/2019, 05/11/2018, 03/22/2021 and 01/18/2021. Technique: CC, MLO and ML views. Breast composition: There are scattered areas of fibroglandular density. Linear tract along the post erior medial RIGHT breast near 2:00 is again evident. The tract appears collapsed since the prior janelle dy. No increasing soft tissue. Additional scattered calcifications throughout the breast are unchange d. RIGHT breast ultrasound, limited. The soft tissue tract with increased hypoechoic material with slight increased vascularity persists a long the 2:00 axis, 5 cm to the nipple. The amount of soft tissue activity appears slightly decreased in size and is less enhancement. Soft tissue filling the tract measures 1.7 x 0.9 cm. MM/[place] [id number] IMPRESSION: BI-RADS: 3-Probably Benign FOLLOW UP: 6 Month Follow-up Interval decrease in amount of soft tissue extending along the tract at 2:00 wi thin the RIGHT breast. Improvement is evident on both mammography and the ultra sound.
--- NOTE | 2021-05-20 13:19 | US_ITS ---
WS: [id number] DIAGNOSTIC RIGHT DIGITAL MAMMOGRAM WITH CAD RIGHT breast ultrasound, limited HISTORY: N60.11 - Diffuse cystic mastopathy of right breast COMPARISON: 09/28/2020, 10/21/2019, 05/11/2018, 03/22/2021 and 01/18/2021. Technique: CC, MLO and ML views. Breast composition: There are scattered areas of fibroglandular density. Linear tract along the post erior medial RIGHT breast near 2:00 is again evident. The tract appears collapsed since the prior janelle dy. No increasing soft tissue. Additional scattered calcifications throughout the breast are unchange d. RIGHT breast ultrasound, limited. The soft tissue tract with increased hypoechoic material with slight increased vascularity persists a long the 2:00 axis, 5 cm to the nipple. The amount of soft tissue activity appears slightly decreased in size and is less enhancement. Soft tissue filling the tract measures 1.7 x 0.9 cm. US/US breast RT limited* [id number] IMPRESSION: BI-RADS: 3-Probably Benign FOLLOW UP: 6 Month Follow-up Interval decrease in amount of soft tissue extending along the tract at 2:00 wi thin the RIGHT breast. Improvement is evident on both mammography and the ultra sound.
== END 2021-05-20 13:08 | disposition home or self-care (01) ==
LOC: RADSHAW 13:14
PROVIDERS: PCP Family Medicine; Visit Provider Surgery
DX: N60.11 Diffuse cystic mastopathy of right breast (principal)
CPT/HCPCS: 76642; 77065

== ENCOUNTER 2021-11-30 09:52 | Outpatient (CLI) | payer MEDICARE, OTHER, SELFPAY ==
--- NOTE | 2021-11-30 10:25 | MM_ITS ---
WS: [id number] BILATERAL SCREENING DIGITAL BREAST TOMOSYNTHESIS MAMMOGRAM WITH CAD HISTORY: Z98.890 - Other specified postprocedural states COMPARISON: None available. Bilateral CC and MLO views with tomosynthesis and synthetic mammography submitted. Computer aided det ection analyzed. Breast composition: There are scattered areas of fibroglandular density. No suspicious masses, microc alcifications or architectural distortion. Improved soft tissue tract and skin thickening at 2:00 RIG HT breast. MM/[place] [id number] IMPRESSION: BI-RADS: 2-Benign FOLLOW UP: 1 Year Follow-up
== END 2021-11-30 09:53 | disposition home or self-care (01) ==
LOC: RAD 09:55
PROVIDERS: PCP Family Medicine; Visit Provider Surgery
DX: Z98.890 Other specified postprocedural states (principal); N60.11 Diffuse cystic mastopathy of right breast
CPT/HCPCS: 77063; 77067

== ENCOUNTER → 2021-12-15 14:36 | Outpatient (BNVA) | payer MEDICARE, OTHER, SELFPAY | PROVIDERS: PCP Family Medicine; Visit Provider Surgery | DX: Z09 Encounter for follow-up examination after completed treatment for conditions other than malignant neoplasm (principal); N60.11 Diffuse cystic mastopathy of right breast | CPT/HCPCS: 99212 ==

== ENCOUNTER → 2022-01-10 09:46 | Outpatient (BNVA) | payer MEDICARE, OTHER, SELFPAY | PROVIDERS: PCP Family Medicine; Visit Provider Family Medicine | DX: E11.9 Type 2 diabetes mellitus without complications (principal); I10 Essential (primary) hypertension | CPT/HCPCS: 80053; 83036; 84439; 84443; 85025 ==

== ENCOUNTER 2022-12-15 09:34 | Outpatient (CLI) | payer MEDICARE, OTHER, SELFPAY ==
--- NOTE | 2022-12-15 09:46 | MM_ITS ---
WS: [id number] BILATERAL SCREENING DIGITAL TOMOSYNTHESIS MAMMOGRAM WITH CAD HISTORY: SCREENING COMPARISON: 11/30/2021, 05/20/2021 Bilateral CC and MLO views with tomosynthesis and synthetic mammography submitted. Computer aided det ection analyzed. Breast composition: There are scattered areas of fibroglandular density. No suspicious masses, microc alcifications or architectural distortion. Scattered calcifications and lymph nodes. No suspicious ma ss or distortion. MM/[place] [id number] IMPRESSION: BI-RADS: 2-Benign FOLLOW UP: 1 Year Follow-up
== END 2022-12-15 09:35 | disposition home or self-care (01) ==
LOC: RAD 09:35
PROVIDERS: PCP Family Medicine; Visit Provider Family Medicine
DX: Z12.31 Encounter for screening mammogram for malignant neoplasm of breast (principal)
CPT/HCPCS: 77063; 77067

== ENCOUNTER → 2023-10-16 10:36 | Outpatient (BNVA) | payer MEDICARE, OTHER, SELFPAY | PROVIDERS: PCP Family Medicine; Visit Provider Family Medicine | DX: E11.9 Type 2 diabetes mellitus without complications (principal) | CPT/HCPCS: 80053; 80061; 83036; 84439; 84443; 85025 ==

== ENCOUNTER → 2024-05-16 11:23 | Outpatient (BNVA) | payer MEDICARE, OTHER, SELFPAY | PROVIDERS: PCP Family Medicine; Visit Provider Family Medicine | DX: E11.9 Type 2 diabetes mellitus without complications (principal) | CPT/HCPCS: 83036 ==

== ENCOUNTER 2025-05-21 11:18 | Outpatient (CLI) | payer MEDICARE, OTHER, SELFPAY ==
--- NOTE | 2025-05-21 11:25 | MM_ITS ---
WS: [id number] BILATERAL SCREENING DIGITAL TOMOSYNTHESIS MAMMOGRAM WITH CAD HISTORY: SCREENING COMPARISON: 12/15/2022, 11/30/2021, 09/28/2020 Bilateral CC and MLO views with tomosynthesis and synthetic mammography submitted. Computer aided detection analyzed. Breast composition: There are scattered areas of fibroglandular density. No suspicious masses, microcalcifications or architectural distortion. Benign calcifications within each breast. MM/MM scr tomosynthesis [id number] IMPRESSION: BI-RADS: 2 - Benign. FOLLOW UP: 1 Year Follow-up
== END 2025-05-21 11:19 | disposition home or self-care (01) ==
LOC: RAD 11:20
PROVIDERS: PCP Family Medicine; Visit Provider Family Medicine
DX: Z12.31 Encounter for screening mammogram for malignant neoplasm of breast (principal); R92.323 Mammographic fibroglandular density, bilateral breasts; R92.1 Mammographic calcification found on diagnostic imaging of breast
CPT/HCPCS: 77063; 77067

== ENCOUNTER → 2025-07-03 08:30 | Outpatient (BNVA) | payer MEDICARE, OTHER, SELFPAY | PROVIDERS: PCP Family Medicine; Visit Provider Family Medicine | DX: E11.9 Type 2 diabetes mellitus without complications (principal) | CPT/HCPCS: 80053; 80061; 83036; 84439; 84443 ==